=== PATIENT | female | born 1985 | race Two or more races ===

== ENCOUNTER 2022-04-25 09:26 | Emergency (ER) | payer OTHER ==
[~2022-04-25] VITALS: Ht 162.6 cm; Wt 70.8 kg
--- NOTE | 2022-04-25 09:35 | NUR ---
TO ER BED 10. BIBS C/O L KNEE PAIN SINCE YESTERDAY WHILE RUNNING, PAIN WORST TODAY WAKING UP. VITALS ARE WITHIN NORMAL LIMITS. AWAITING MD STOKES.
[2022-04-25 10:32] VITALS: BP 122/70
--- NOTE | 2022-04-25 10:32 | NUR ---
applied raegan wrap at L knee.
== END 2022-04-25 10:35 | disposition home or self-care (01) ==
LOC: ER 09:39
DX: M25.462 Effusion, left knee (principal)
CPT/HCPCS: 73564-TC